=== PATIENT | female | born 1985 | race Caucasian/White ===

== ENCOUNTER 2022-08-16 08:14 | Emergency (ER) | payer BC, SELFPAY ==
--- NOTE | 2022-08-16 08:14 | ED.FEMALEGU ---
HPI - Female Genitourinary General Chief complaint: Urogenital-Female Stated complaint: UTI Time Seen by Provider: 08/16/22 08:14 Source: patient Mode of arrival: ambulatory Limitations: no limitations History of Present Illness HPI Narrative: Ms. Fay is a 37-year-old female patient presenting to the clinic today with complaints possible urinary tract infection. She reports she had blood in her urine last night with frequency and urgency and dysuria. She also reports some low back pain and some lower abdominal pain. She denies any fever or chills. She denies any nausea or vomiting. Related Data Home Medications Medication Instructions Recorded Confirmed fluoxetine 10 mg capsule 10 mg PO DAILY 07/23/22 08/16/22 fluoxetine 20 mg capsule 20 mg PO DAILY 07/23/22 08/16/22 lithium carbonate 300 mg capsule 300 mg PO DAILY 07/23/22 08/16/22 lithium carbonate 450 mg 450 mg PO DAILY 07/23/22 08/16/22 tablet,extended release olanzapine 2.5 mg tablet 2.5 mg PO DAILY 07/23/22 08/16/22 Allergies Allergy/AdvReac Type Severity Reaction Status Date / Time No Known Allergies Allergy Verified 07/23/22 08:33 Review of Systems Review of Systems: Pertinent positives per HPI. Patient denies any fever, chills, rash, headache, visual changes, dizziness, cough, runny nose, sore throat, shortness of breath, chest pain, palpitations, nausea, vomiting, diarrhea, constipation PMFSH Past Medical History Medical History Allergies Anxiety Crohn's disease Depression Family History Family History Sibling Family history of thyroid disease Mother Family history of gastrointestinal disorder Father Family history of elevated blood lipids Social History Social History Smoking status: Never smoker Alcohol intake: current Alcohol use details: social Substance use: never Comments At the time of my signature, I reviewed and agree with the nursing past medical, surgical, social, and family history. There is no relevant family history pertinent to the patient complaint. Exam Narrative: General: Well-developed, well nourished, in no apparent distress. Head: Normocephalic, atraumatic. Cardio: Regular rate and rhythm, s1 and s2 normal, no murmur appreciated. Resp: Clear to auscultation bilaterally, no rhonchi, rales, wheezing or rubs. Abdomen: Soft, pliable, bowel sounds present in all quadrants, tender to palpation to lower abdomen and over the bladder, no organomegly, no CVAT tenderness. Course Course Emergency Course: Portions of this record may have been created with voice recognition software. Level of Care: Express Care Visit Vital Signs Vital signs: Vital signs reviewed MDM - Female Genitourinary MDM Narrative Medical decision making narrative: At the time of visit patient is resting comfortably on the exam table. Urinalysis was performed and shows positive leukocytes, blood, protein, high specific gravity, and nitrates. I will place her on a 7 day course of Bactrim DS as well as some Pyridium. Supportive measures were discussed with the patient she voiced understanding of discharge instructions and agrees to treatment plan. Urine culture was sent to the lab Differential Diagnosis Differential diagnosis: Likely urinary tract infection and cystitis Discharge Plan Discharge Clinical Impression: Urinary tract infection Qualifiers: Urinary tract infection type: acute cystitis Hematuria presence: with hematuria Qualified Code(s): N30.01 - Acute cystitis with hematuria Patient Disposition: Home, Self-Care Condition: Stable Instructions: Antibiotic Form, Urinary Tract Infection in Women (ED) Additional Instructions: UA was positive for bacteria, nitrate, blood, and protein. we will send urine for culture Start Ad[place]isa
[2022-08-16 08:20] VITALS: BP 116/69; PULSE 87; RESP 18; TEMP 36.4; O2SAT 100
== END 2022-08-16 08:53 | disposition home or self-care (01) ==
PROVIDERS: Emergency Provider Nurse Practitioner Family; PCP Internal Medicine
DX: N30.01 Acute cystitis with hematuria (principal); F41.9 Anxiety disorder, unspecified; F32.A Depression, unspecified; K50.90 Crohn's disease, unspecified, without complications
CPT/HCPCS: 81003; 87077; 87086; 87186; 99213; G0463

== ENCOUNTER 2023-04-09 08:42 | Inpatient (IN) | payer BC, SELFPAY ==
[2023-04-09] VITALS (29 sets, daily range): BP systolic 95–125; BP diastolic 55–77; PULSE 63–90; RESP 16–18; TEMP 36.6–37.1; O2SAT 97–100; BMI 23.4
--- NOTE | ~2023-04-09 | CT_ITS ---
EXAMINATION: CT abdomen pelvis w con DATE: 04/09/2023 10:41 INDICATION: Low abdominal pain. TECHNIQUE: Computed tomography (CT) of the abdomen and pelvis was performed with 100 mL Omnipaque 350 intravenous contrast. Automated exposure control and iterative reconstruction technique were employe d. The dose-length product was 243.62 mGy-cm. COMPARISON: CT abdomen and pelvis 08/11/2018 FINDINGS: The visualized portions of the lung bases demonstrate mild atelectasis. No pleural effusion . The heart size is normal. No pericardial effusion. The liver, gallbladder, spleen, pancreas, adrena l glands, and kidneys are normal. There are no dilated loops of bowel. There is wall thickening of th e distal 15 cm of small bowel with adjacent fat stranding. There is a 9 mm rim-enhancing abscess tennille cent to the terminal ileum with surrounding fat stranding. There are no pathologically enlarged lymph nodes. There is physiologic fluid in the pelvis. There is mild thoracolumbar spondylosis. IMPRESSION: 1. Terminal ileitis with small adjacent abscess, consistent with Crohn disease. Reviewed, dictated and finalized at location A.
--- NOTE | 2023-04-09 08:57 | ED.ABDPAIN ---
HPI - Abdominal Pain General Chief Complaint: Abdominal Pain Stated Complaint: abd cramps Time Seen by Provider: 04/09/23 08:56 Source: patient and family Mode of arrival: ambulatory Limitations: no limitations History of Present Illness HPI narrative: 57 years old white female presents with intermittent abdominal cramps for weeks, got worse yesterday, has been steady since. Associated with nausea and chills. She denies any vomiting, diarrhea, constipation, fever, vaginal bleeding or discharge or urinary symptoms. History of Crohn's. And anemia. Patient does not smoke or drink or uses drugs no history of abdominal surgery. Related Data Home Medications Medication Instructions Recorded Confirmed fluoxetine 10 mg capsule 10 mg PO DAILY 07/23/22 08/16/22 fluoxetine 20 mg capsule 20 mg PO DAILY 07/23/22 08/16/22 lithium carbonate 300 mg capsule 300 mg PO DAILY 07/23/22 08/16/22 lithium carbonate 450 mg 450 mg PO DAILY 07/23/22 08/16/22 tablet,extended release olanzapine 2.5 mg tablet 2.5 mg PO DAILY 07/23/22 08/16/22 budesonide 3 mg 3 mg PO DAILY 04/09/23 04/09/23 capsule,delayed,extended release ferrous sulfate 325 mg (65 mg 325 mg PO DAILY 04/09/23 04/09/23 iron) tablet Allergies Allergy/AdvReac Type Severity Reaction Status Date / Time No Known Allergies Allergy Verified 04/09/23 09:22 Review of Systems Review of Systems: All systems reviewed & are unremarkable except as noted in HPI and below PMFSH Past Medical History Medical History Allergies Anxiety Crohn's disease Depression Family History Family History Sibling Family history of thyroid disease Mother Family history of gastrointestinal disorder Father Family history of elevated blood lipids Social History Social History Smoking status: Never smoker Alcohol intake: current Alcohol use details: social Substance use: never Exam Narrative: General appearance: Well-developed, well-nourished Skin: Normal color Head: Normocephalic, nontraumatic Eyes: Clear conjunctiva ENT: Oropharynx normal, ears normal, nose normal Neck: Supple, nontender Chest and respiratory: Airway patent, no respiratory distress, no accessory muscle use Heart: Regular rate/rhythm Abdomen: Soft, nontender, no organomegaly, quiet bowel sounds Vascular: Normal peripheral pulses, normal capillary refill. Musculoskeletal: Normal range of motion, nontender back Neurologic: Alert and oriented ?3, HOME HEALTH AIDE is normal as tested, no gross motor deficit Distended, diffuse tenderness lower abdomen bilaterally, slight guarding, no rebound, quiet bowel sounds Course Consultations Consultation #1: Dr. Keane Date: 04/09/23 Time: 12:09 Consultation #2: Dr. Ballard Date: 04/09/23 Time: 12:11 Vital Signs Vital signs: Vital Signs Pulse Oximetry 100 04/09/23 08:55 Temperature 36.7 C 04/09/23 11:00 Pulse Rate 73 04/09/23 11:00 Respiratory Rate 18 04/09/23 11:00 Blood Pressure 106/73 04/09/23 11:00 Pulse Oximetry 100 04/09/23 11:00 Oxygen Delivery Room Air 04/09/23 09:18 MDM - Abdominal Pain MDM Narrative Medical decision making narrative: 37 years old white female came to the emergency room with intermittent cramps for weeks, got worse over last 24 hours, abdominal exam was insignificant with diffuse tenderness and guarding of the lower abdomen bilaterally mainly on the right side. Differential diagnosis as below, History of Crohn's disease currently on Entocort. Workup today include CBC, CMP,
[2023-04-09 09:34] LABS: Basophils Absolute Auto 0.1 K/mm3 (0.0-0.1); Basophils Percent Auto 0.9 % (0.2-1.2); Eosinophils Absolute Auto 0.3 K/mm3 (0-0.3); Eosinophils Percent Auto 3.5 % (0-4.4); Hematocrit 33.9 % (37.0-47.0); Hemoglobin 10.8 g/dL (12.0-15.0); Immature Granulocyte Absolute 0.02 K/mm3 (0.00-0.031); Immature Granulocyte Percent A 0.3 % (0-0.5); Lymphocytes Absolute Auto 1.75 K/mm3 (0.9-3.2); Lymphocytes Percent Auto 22.8 % (18.3-44.2); Mean Corpuscular HGB Conc 31.9 g/dl (32-36); Mean Corpuscular Hemoglobin 26.5 pg (26-34); Mean Corpuscular Volume 83.3 fl (80-100); Mean Platelet Volume 8.9 fl (7.4-10.4); Monocytes Absolute Auto 0.6 K/mm3 (0.1-0.6); Monocytes Percent Auto 7.7 % (2.6-8.5); Neutrophils Percent Auto 64.8 % (45.5-73.1); Platelet Count Result 338 k/mm3 (150-375); Red Blood Count 4.07 M/mm3 (4.2-5.4); Red Cell Distribution Width 13.2 % (11.5-14.5); White Blood Count 7.7 K/mm3 (4.5-10.0)
[2023-04-09 09:44] LABS: Alanine Aminotransferase 15 U/L (6-35); Alkaline Phosphatase 48 U/L (38-126); Anion Gap 6 mmol/L (8-16); Aspartate Amino Transferase 21 U/L (14-36); Bilirubin,Total 0.4 mg/dL (0.2-1.3); Blood Urea Nitrogen 16 mg/dL (7-17); Calcium 8.7 mg/dL (8.4-10.2); Carbon Dioxide 27 mmol/L (22-30); Chloride 102 mmol/L (98-107); Estimated CRCL calculation 92 ml/min; Estimated Glomerular Filt Rate > 60; Glucose 103 mg/dL (65-110); Lipase 82 U/L (23-300); Potassium 3.9 mmol/L (3.4-5.0); Sodium 135 mmol/L (137-145)
[2023-04-09 10:23] LABS: Appearance Urine Clear (Clear); Bacteria Urine 1+ /hpf; Bilirubin Urine Negative (Negative); Blood Urine Negative (Negative); Color Urine Yellow (Yellow); Glucose Urine UA Negative (Negative); Ketones Urine Trace mg/dL (Negative); Leukocyte Esterase Ur Negative LEU/UL (Negative); Nitrate Urine Negative (Negative); Non Pathogenic Casts 0-2; Protein Urine Trace mg/dL (Negative); Squamous Epithelial Cell Urine Moderate /hpf (Few); WBC Urine 0-5 /hpf; pH Urine 5.5 (5.0-9.0)
[2023-04-09 10:41] LABS: Specific Grav Ur 1.037 (1.001-1.035)
[2023-04-09 10:42] LABS: Add Urine Microscopic? YES
[2023-04-09] MEDS: MORPHINE SULFATE (*CRX) 4 MG/ML INJ IV PUSH (10:54)
[2023-04-09] MEDS: SODIUM CHLORIDE 0.9% IV 1,000 ML 999 ML IV CONT ×2 (10:55→12:15)
[2023-04-09] MEDS: PIPERACILLN/TAZ 3.375GM/NS50ML 3.375 GM/50 ML BAG IVPB ×3 (12:15→23:22)
--- NOTE | 2023-04-09 13:39 | PM.CNGS ---
Assessment and Plan Assessment and plan (1) Crohn's disease involving terminal ileum: Code(s): K50.00 - Crohn's disease of small intestine without complications Status: Acute Assessment and Plan: exam largely benign, await GI consultation likely IV steroids for Crohn's flare, no acute surgical indications this time, will continue to follow with serial exams (2) Abscess: Code(s): L02.91 - Cutaneous abscess, unspecified Status: Acute Assessment and Plan: small adjacent abscess near the terminal ileum, unlikely will need drainage at this time, IV antibiotics History of Present Illness Consult details Consult date: 04/09/23 Reason for consult: abdominal pain Requesting physician: Marco Decker MD Narrative: The patient is a 37-year-old female with history Crohn's disease presenting to the emergency department complaining severe crampy abdominal pain. Patient reports that the pain has been going on for about the last week, however has worsened over the last 24 hours. The patient reports associated nausea, poor appetite, chills. The patient denies any fevers or changes in bowel habits. The patient follows Dr. Maciel for her Crohn's disease. Review of Systems Review of Systems: All systems reviewed & are unremarkable except as noted in HPI and below PMFSH Past Medical History Medical History Allergies Anxiety Crohn's disease Depression Family History Family History Sibling Family history of thyroid disease Mother Family history of gastrointestinal disorder Father Family history of elevated blood lipids Social History Social History Smoking status: Never smoker Alcohol intake: current Alcohol use details: social Substance use: never Meds Home Medications and Allergies Home Medications Medication Instructions Recorded Confirmed Type fluoxetine 10 mg capsule 10 mg PO DAILY 07/23/22 08/16/22 History fluoxetine 20 mg capsule 20 mg PO DAILY 07/23/22 08/16/22 History lithium carbonate 300 mg capsule 300 mg PO DAILY 07/23/22 08/16/22 History lithium carbonate 450 mg 450 mg PO DAILY 07/23/22 08/16/22 History tablet,extended release olanzapine 2.5 mg tablet 2.5 mg PO DAILY 07/23/22 08/16/22 History phenazopyridine 200 mg tablet 200 mg PO TID PRN pain 6 doses #6 08/16/22 Rx (Pyridium) tabs budesonide 3 mg See Rx Instructions .Route 01/03/23 Rx capsule,delayed,extended release .COMPLEX #90 caps budesonide 3 mg 3 mg PO DAILY 04/09/23 04/09/23 History capsule,delayed,extended release ferrous sulfate 325 mg (65 mg 325 mg PO DAILY 04/09/23 04/09/23 History iron) tablet Allergies Allergy/AdvReac Type Severity Reaction Status Date / Time No Known Allergies Allergy Verified 04/09/23 09:22 Vital Signs Vital Signs - 24 hr 04/09/23 09:18 04/09/23 08:55 04/09/23 09:00 Temperature 36.7 C Pulse Rate 85 Respiratory Rate 16 Blood Pressure 107/77 Pulse Oximetry 100 100 100 Oxygen Delivery Room Air 04/09/23 09:15 04/09/23 11:00 04/09/23 11:01 Temperature 36.7 C Pulse Rate 73 Respiratory Rate 18 Blood Pressure 106/73 Pulse Oximetry 100 100 100 Oxygen Delivery 04/09/23 11:20 04/09/23 11:30 04/09/23 11:31 Temperature Pulse Rate Respiratory Rate Blood Pressure 125/71 Pulse Oximetry 100 100 100 Oxygen Delivery 04/09/23 11:54 04/09/23 11:55 04/09/23 12:00 Temperature Pulse Rate 65 Respiratory Rate Blood Pressure 95/69 L 96/69 L Pulse Oximetry 100 100 100 Oxygen Delivery 04/09/23 12:01 04/09/23 12:15 04/09/23 12:17 Temperature Pulse Rate Respiratory Rate Blood Pressure 109/64 Pulse Oximetry 100 100 100 Oxygen Delivery 04/09/23 12:30 04/09/23 12:31 04/09/23 12:48 Temperature Pulse Rate 63 Respira
--- NOTE | 2023-04-09 15:42 | ADMGEN ---
This patient, Lizabeth Fay, was admitted to 2 Medical Room 254-01. Patient/family oriented to hospital policies and general routines including ID bracelet, bed and alarms, visiting hours, pain management, procedures, bathroom and other care routines, personal items, smoking policy, room service/diet, and visiting hours. Information on how to activate the Rapid Response Team has been discussed. Patient/Family are encouraged to report perceived risks to care and to ask questions if they do not understand what they are told or what they should do.
--- NOTE | 2023-04-09 15:55 | PM.IMHP ---
H&P: HPI History of Present Illness Date/Time: 04/09/23 14:45 Chief Complaint: Abdominal pain. Narrative: This is a very pleasant 37-year-old female with Crohn's disease who presented to the emergency department for evaluation of abdominal pain. The patient provides the following history. She is a patient of Dr. Maciel and has been maintained on Entocort for many years seems to have done well with that. The last month or so however she has had intermittent issues of abdominal cramping and discomfort similar to prior Crohn's flares. It has become more persistent the last few days and seems to be diffuse throughout the abdomen however is more noticeable on the right side with examination. Her pain seems to be worse with eating but not always. Her stools have been small in caliber and hard; she has not noticed any blood or mucus in the stools. Associated symptoms include chills, sweats, and nausea though she has not had any vomiting. In the ED: She was afebrile on arrival with stable vital signs. CT of the abdomen and pelvis showed terminal ileitis with a small adjacent abscess. She was started on Zosyn and is being admitted in this setting for further treatment and consultations with surgery and GI. Review of Systems Review of Systems: Twelve systems were reviewed and are negative except for as per HPI. [facility] Past Medical History Medical History (Updated 04/09/23 @ 22:17 by Emma Mueller PA-C) Allergies Anxiety Chronic anemia Crohn's disease Depression Surgical History Surgical History (Updated 04/09/23 @ 22:15 by Emma Mueller PA-C) History of wisdom tooth extraction Family History Family History Sibling Family history of thyroid disease Mother Family history of gastrointestinal disorder Father Family history of elevated blood lipids Social History Social History (Updated 04/09/23 @ 22:15 by Emma Mueller PA-C) Social History: Surrogate medical decision maker: Jennifer or Emmett Sumeet, parents. Code status: Full code. Smoking status: Never smoker Alcohol intake: former Alcohol use details: social Substance use: never Lack of Transportation: No Lack of Food: Never True Current Housing: I Have Housing Concerned About Future Housing: No Difficulty Paying Gas/Electric Bills: No Difficulty Paying for Meds: No Currently Unemployed: No Education: Bachelor's Degree Difficulty w/ Childcare or Family Care: No Spiritual care concerns: No Meds Home Medications and Allergies Home Medications Medication Instructions Recorded Confirmed Type budesonide 3 mg See Rx Instructions .Route 01/03/23 04/09/23 Rx capsule,delayed,extended release .COMPLEX #90 caps budesonide 3 mg 3 mg PO DAILY 04/09/23 04/09/23 History capsule,delayed,extended release ferrous sulfate 325 mg (65 mg 325 mg PO DAILY 04/09/23 04/09/23 History iron) tablet Allergies Allergy/AdvReac Type Severity Reaction Status Date / Time No Known Allergies Allergy Verified 04/09/23 09:22 Vital Signs Vital Signs - 24 hr 04/09/23 09:18 04/09/23 08:55 04/09/23 09:00 Temperature 98.1 F Pulse Rate 85 Respiratory Rate 16 Blood Pressure 107/77 Pulse Oximetry 100 100 100 Oxygen Delivery Room Air 04/09/23 09:15 04/09/23 11:00 04/09/23 11:01 Temperature 98.0 F Pulse Rate 73 Respiratory Rate 18 Blood Pressure 106/73 Pulse Oximetry 100 100 100 Oxygen Delivery 04/09/23 11:20 04/09/23 11:30 04/09/23 11:31 Temperature Pulse Rate Respiratory Rate Blood Pressure 125/71 Pulse Oximetry 100 100 100 Oxygen Delivery 04/09/23 11:54 04/09/23 11:55 04/09/23 12:00 Temperature Pulse Rate 65 Respiratory Rate Blood Pressure 95/69 L 96/69 L Pulse Oximetry 100 100 100 Oxygen Delivery 04/09/23 12:01 04/09/23 12:15 04/09/23 12:17 Temperature Pulse Rate Respiratory Rate
[2023-04-09] MEDS: SODIUM CHLORIDE 0.9% IV 1,000 ML 150 ML IV CONT (17:50)
[2023-04-09] MEDS: ONDANSETRON INJ 4 MG/2 ML VIAL IV PUSH (23:22)
[2023-04-09] MEDS: HYDROmorphone HCL INJ (*CRX) 1 MG/ML SYR 0.5 MG IV PUSH (23:22)
[2023-04-10] MEDS: SODIUM CHLORIDE 0.9% IV 1,000 ML 150 ML IV CONT ×4 (00:32→21:43)
[2023-04-10 05:28] LABS: Hematocrit 27.8 % (37.0-47.0); Hemoglobin 8.7 g/dL (12.0-15.0); Mean Corpuscular HGB Conc 31.3 g/dl (32-36); Mean Corpuscular Hemoglobin 26.8 pg (26-34); Mean Corpuscular Volume 85.5 fl (80-100); Platelet Count Result 241 k/mm3 (150-375); Red Blood Count 3.25 M/mm3 (4.2-5.4); Red Cell Distribution Width 13.3 % (11.5-14.5); White Blood Count 8.4 K/mm3 (4.5-10.0)
[2023-04-10 05:34] VITALS: BP 95/52; PULSE 72; RESP 17; TEMP 36.6; O2SAT 99
[2023-04-10 05:43] LABS: Anion Gap 3 mmol/L (8-16); Blood Urea Nitrogen 8 mg/dL (7-17); Calcium 7.7 mg/dL (8.4-10.2); Carbon Dioxide 24 mmol/L (22-30); Chloride 108 mmol/L (98-107); Estimated CRCL calculation 79 ml/min; Estimated Glomerular Filt Rate > 60; Glucose 84 mg/dL (65-110); Magnesium 1.8 mg/dL (1.6-2.3); Sodium 135 mmol/L (137-145)
[2023-04-10] MEDS: PIPERACILLN/TAZ 3.375GM/NS50ML 3.375 GM/50 ML BAG IVPB ×4 (05:49→23:33)
--- NOTE | 2023-04-10 07:44 | PM.IMPN ---
Progress Note: A&P Assessment and Plan (1) Crohn's disease involving terminal ileum: Code(s): K50.00 - Crohn's disease of small intestine without complications Status: Acute Assessment and Plan: Follows with Dr Maciel Therapy with Budesonide Presenting now with abdominal pain and nausea IVF, liquid diet PRN pain and anti-emetics GI consult. Appreciate recommendations. DVT prophylaxis with Lovenox and SCDs (2) Abscess of abdominal cavity: Code(s): K65.1 - Peritoneal abscess Status: Acute Assessment and Plan: Small adjacent abscess near terminal ileum Antibiotics with zosyn Consult with general surgery-no surgical intervention indicated at this time WBC 8.4, afebrile (3) Mild dehydration: Code(s): E86.0 - Dehydration Status: Acute Assessment and Plan: On maintenance fluids NS 150 ml per hour SBP 95/52 overnight Will give 1 L NS bolus (4) Chronic anemia: Code(s): D64.9 - Anemia, unspecified Status: Acute Assessment and Plan: Chronic anemia on ferrous sulfate at home, restarted here Stable Hgb 8.7/27.8 Daily labs Plan -GI consult for further recommendations. -IVF, pain control, nausea control -IV antibiotics Subjective Date/time seen: 04/10/23 07:44 Interval history: HPI obtained from chart: This is a very pleasant 37-year-old female with Crohn's disease who presented to the emergency department for evaluation of abdominal pain. The patient provides the following history. She is a patient of Dr. Maciel and has been maintained on Entocort for many years seems to have done well with that. The last month or so however she has had intermittent issues of abdominal cramping and discomfort similar to prior Crohn's flares. It has become more persistent the last few days and seems to be diffuse throughout the abdomen however is more noticeable on the right side with examination. Her pain seems to be worse with eating but not always. Her stools have been small in caliber and hard; she has not noticed any blood or mucus in the stools. Associated symptoms include chills, sweats, and nausea though she has not had any vomiting. In the ED: She was afebrile on arrival with stable vital signs. CT of the abdomen and pelvis showed terminal ileitis with a small adjacent abscess. She was started on Zosyn and is being admitted in this setting for further treatment and consultations with surgery and GI. Interval History 04/10: Patient is seen resting in bed, she appears pale and unwell. She says that this morning she had some pain and nausea blood both were controlled with p.r.n. agents. Her mom daughter at bedside. Her family has a long history of Crohn's disease with her mom being in remission for 20 years, her brother has Crohn's, an aunt, and a nephew. This is the patient's 2nd hospitalization for Crohn's. She had previously had a abscess was concerns for fistula development for which she had surgery performed. She says that last night when she had received some pain medicine and antibiotics she had an episode of diarrhea but then later felt like she was constipated. She also complains of abdominal cramping overnight. She has been tolerating the full liquid diet. Await GI recommendations if steroids are needed. Can add Bentyl for abdominal cramping. Exam Narrative: General: well-nourished, well-appearing 78-year-old female, sitting up in bed, comfortable, NARD Neuro: awake, alert and oriented x4, speech clear, no focal neuro deficits noted HEENMT: normocephalic, atraumatic, EOMI, sclerae anicteric, moist oral mucosa Respiratory: Clear to auscultation bilaterally without crackles, rhonchi or wheezes, nonlabored breathing Cardio: regular rate, regular rhythm with S1-S2 Abdomen: nondistended, normoactive bowel sounds, soft, nontender to palpation Extremities: no edema, erythema, or tenderness to palpation, DP pulses 2+ bilaterally Sk
[2023-04-10] MEDS: SODIUM CHLORIDE 0.9% IV 1,000 ML 999 ML IV CONT (08:47)
[2023-04-10] MEDS: ENOXAPARIN 40 MG/0.4 ML SYRINGE SUB-Q (08:48)
[2023-04-10] MEDS: HYDROmorphone HCL INJ (*CRX) 1 MG/ML SYR 0.5 MG IV PUSH (08:48)
[2023-04-10] MEDS: FERROUS SULFATE 325 MG TABLET DR BY MOUTH (08:48)
[2023-04-10] MEDS: ACETAMINOPHEN 325 MG TABLET 650 MG PO (12:15)
--- NOTE | 2023-04-10 12:39 | PM.PNGS ---
Progress Note: A&P Assessment and Plan (1) Crohn's disease involving terminal ileum: Code(s): K50.00 - Crohn's disease of small intestine without complications Status: Acute Assessment and Plan: await GI consultation re: need for steroids acutely, exam now benign, cont IV abx (2) Abscess: Code(s): L02.91 - Cutaneous abscess, unspecified Status: Acute Assessment and Plan: cont abx, exam benign Subjective Subjective Date/Time Seen: 04/10/23 12:39 Interval history: feels better today, decreased pain, no further N/V, fareed full liquids, +bowel fxn Review of Systems Review of Systems: All systems reviewed & are unremarkable except as noted in HPI and below Exam Const: General: cooperative, comfortable and no acute distress Resp: Auscultation: clear to auscultation bilaterally Cardio: Rate: regular rate Rhythm: regular rhythm GI: Inspection: normal to inspection and non-distended GI Palp: Yes abdominal tenderness, Yes Soft to palpation, Yes Tenderness to palpation present (GI), No Guarding due to palpation present (GI) and No Rigid due to palpation Objective Data Vital Signs Vital Signs: Vital Signs - 24 hr 04/09/23 12:48 04/09/23 13:04 04/09/23 13:17 Temperature Pulse Rate Respiratory Rate Blood Pressure Pulse Oximetry 97 100 100 Oxygen Delivery 04/09/23 13:30 04/09/23 13:45 04/09/23 14:00 Temperature Pulse Rate Respiratory Rate Blood Pressure Pulse Oximetry 100 100 100 Oxygen Delivery 04/09/23 14:27 04/09/23 14:30 04/09/23 14:45 Temperature Pulse Rate 90 Respiratory Rate 16 Blood Pressure Pulse Oximetry 100 100 100 Oxygen Delivery 04/09/23 16:05 04/09/23 16:25 04/09/23 20:00 Temperature 37.1 C Pulse Rate 80 80 Respiratory Rate 16 16 Blood Pressure 106/56 L Pulse Oximetry 100 100 Oxygen Delivery Room Air Room Air 04/09/23 21:31 04/10/23 05:34 04/10/23 08:00 Temperature 36.6 C 36.6 C Pulse Rate 88 72 Respiratory Rate 17 17 Blood Pressure 96/55 L 95/52 L Pulse Oximetry 99 99 Oxygen Delivery Room Air Intake/Output Intake/Output: Intake & Output 08/03/2304/08/23 04/09/23 04/10/23 23:59 23:59 23:59 23:59 Intake Total 2150 2560 Balance 2150 2560 Meds/Results Medications: Active Medications Generic Name Dose Route Start Last Admin Trade Name Freq PRN Reason Stop Dose Admin Acetaminophen 650 mg 04/10/23 10:40 04/10/23 12:15 Acetaminophen 325 Mg Tablet PO 650 mg Q4H PRN Administration Pain Rated 1-3 Dicyclomine HCl 20 mg 04/10/23 11:00 Dicyclomine Hcl 10 Mg Capsule PO QID PRN Abdominal Cramping Enoxaparin Sodium 40 mg 04/10/23 09:00 04/10/23 08:48 Enoxaparin 40 Mg/0.4 Ml Syringe SUB-Q 40 mg DAILY MELO Administration Ferrous Sulfate 325 mg 04/10/23 09:00 04/10/23 08:48 Ferrous Sulfate [address] BY MOUTH 325 mg DAILY MELO Administration Hydromorphone HCl 0.5 mg 04/09/23 12:38 04/10/23 08:48 Hydromorphone Hcl Inj (*Crx) 1 Mg/Ml Syr IV PUSH 0.5 mg Q4H PRN Administration Pain Rated 7-10 Hydromorphone HCl 0.25 mg 04/10/23 10:40 Hydromorphone Hcl Inj (*Crx) 1 Mg/Ml Syr IV PUSH Q3H PRN Pain Rated 4-6 Piperacillin/Tazobactam/Dextrose 3.375 gm in 50 mls @ 100 mls/hr 04/09/23 12:00 04/10/23 12:16 Zosyn 3.375 Gm/Ns 50 Ml IVPB 100 mls/hr Q6H MELO Administration Sodium Chloride 1,000 mls @ 150 mls/hr 04/09/23 12:40 04/10/23 05:49 Normal Saline Iv IV CONT 150 mls/hr .Q6H40M MELO Administration Ondansetron HCl 4 mg 04/09/23 12:38 04/09/23 23:22 Ondansetron Inj 4 Mg/2 Ml Vial IV PUSH 4 mg Q4H PRN Administration Nausea Radiology Results: ITS Impressions Abdomen/Pelvis CT 04/09/23 10:41 IMPRESSION: 1. Terminal ileitis with small adjacent abscess, consistent with Crohn disease. Labs Labs: Laboratory Results - last 24 hr
[2023-04-10 14:55] VITALS: BP 98/54; PULSE 62; RESP 18; TEMP 36.5; O2SAT 100
--- NOTE | 2023-04-10 15:22 | WPDGICN ---
Assessment and Plan Assessment and plan (1) Crohn's disease involving terminal ileum: Code(s): K50.00 - Crohn's disease of small intestine without complications Status: Acute Assessment and Plan: CT scan reviewed surgery on board on antibiotics, also will use iv steroids (hold entecort for now) she will need biologics near future (had reaction to humira- probably could use entyvio, stelara, skyrizi, etc) will get inflammatory markers and also get HBV and TB status she also will need colonoscopy soon (next appointment with Dr Maciel next month and they can discuss next course of treatment) (2) Abscess of abdominal cavity: Code(s): K65.1 - Peritoneal abscess Status: Acute Assessment and Plan: on abx (3) Chronic anemia: Code(s): D64.9 - Anemia, unspecified Status: Acute Assessment and Plan: monitor (4) Lower abdominal pain: Code(s): R10.30 - Lower abdominal pain, unspecified Status: Acute Assessment and Plan: better GI Consult Note Consult date/time: 04/10/23 15:22 Reason for consult: crohn's HPI: Lizabeth Fay is a 37 year old female who is Dr Maciel's patient. She has Crohn disease at the age of 25.? Her last colonoscopy in 2015 revealed inflammatory changes along the ileocecal valve and what could also could be seen in the terminal ileum.? An MR enterography 2018 showed active ileitis in the terminal ileum over 10 cm area but no significant stricture and dilatation.? She had been tried on a biologic about 7 years ago, Humira that worked quite well, but developed lupus like reaction to that.? She had been on Entocort 3 can tablets per day in 2019 and 2019, then restarted recently but she says for last 2 months with more intermittent lower abdominal pain, finally yesterday pain more severe and did not go away, also had diarrhea (normally she tends to have constipation). The patient reports associated nausea, poor appetite, chills. CT scan showed terminal ileitis with small adjacent abscess, consistent with Crohn disease. Today she is feeling better. Review of Systems Constitutional: Constitutional: Denies weakness Eyes: Eyes: Denies blurry vision ENT: Reports Normal hearing present Cardiovascular: Cardiovascular: Denies chest pain Respiratory: Respiratory: Denies cough Gastrointestinal: Gastrointestinal: Reports abdominal pain, Reports diarrhea and Reports nausea Genitourinary: Genitourinary: Denies hematuria Musculoskeletal: Musculoskeletal: Denies neck pain Integumentary/Breasts: Skin/Breast: Denies rash Neurologic: Denies confusion Psychiatric: Psychiatric: Denies behavioral changes [facility] Past Medical History Medical History (Updated 04/10/23 @ 15:30 by Stalin Johnson MD) Allergies Anxiety Chronic anemia Crohn's disease Depression Lower abdominal pain Surgical History Surgical History (Updated 04/09/23 @ 22:15 by Emma Mueller PA-C) History of wisdom tooth extraction Family History Family History Sibling Family history of thyroid disease Mother Family history of gastrointestinal disorder Father Family history of elevated blood lipids Social History Social History (Updated 04/09/23 @ 22:15 by Emma Mueller PA-C) Social History: Surrogate medical decision maker: Jennifer or Emmett Sumeet, parents. Code status: Full code. Smoking status: Never smoker Alcohol intake: former Alcohol use details: social Substance use: never Lack of Transportation: No Lack of Food: Never True Current Housing: I Have Housing Concerned About Future Housing: No Difficulty Paying Gas/Electric Bills: No Difficulty Paying for Meds: No Currently Unemployed: No Education: Bachelor's Degree Difficulty w/ Childcare or Family Care: No Spiritual care concerns: No Meds Home Medications and Allergies Home Medications Medic
[2023-04-10] MEDS: ONDANSETRON INJ 4 MG/2 ML VIAL IV PUSH (17:18)
[2023-04-10 18:56] VITALS: BP 99/64; PULSE 78; RESP 18; TEMP 36.9; O2SAT 99
[2023-04-10 20:00] VITALS: BP 95/62; PULSE 74; RESP 18; TEMP 36.2; O2SAT 100
[2023-04-10] MEDS: methylPREDNISolone SOD SUCC 40 MG VIAL IV PUSH (21:43)
[2023-04-11] VITALS: BP 96/57; PULSE 64; RESP 18; TEMP 36.3; O2SAT 97
[2023-04-11 04:00] VITALS: BP 92/53; PULSE 64; RESP 18; TEMP 36; O2SAT 97
[2023-04-11] MEDS: SODIUM CHLORIDE 0.9% IV 1,000 ML 150 ML IV CONT ×2 (04:51→11:54)
[2023-04-11 05:34] LABS: Alanine Aminotransferase 17 U/L (6-35); Albumin Level 3.1 g/dL (3.5-5.1); Alkaline Phosphatase 47 U/L (38-126); Anion Gap 1 mmol/L (8-16); Aspartate Amino Transferase 23 U/L (14-36); Bilirubin,Total 0.2 mg/dL (0.2-1.3); Blood Urea Nitrogen 5 mg/dL (7-17); CRP 1.7 mg/dL (<1.0); Calcium 8.2 mg/dL (8.4-10.2); Carbon Dioxide 25 mmol/L (22-30); Chloride 109 mmol/L (98-107); Estimated CRCL calculation 79 ml/min; Estimated Glomerular Filt Rate > 60; Glucose 122 mg/dL (65-110); Magnesium 1.8 mg/dL (1.6-2.3); Sodium 135 mmol/L (137-145)
[2023-04-11] MEDS: PIPERACILLN/TAZ 3.375GM/NS50ML 3.375 GM/50 ML BAG IVPB ×2 (05:37→11:55)
[2023-04-11] MEDS: methylPREDNISolone SOD SUCC 40 MG VIAL IV PUSH ×2 (05:38→13:28)
[2023-04-11 05:50] LABS: Iron 21 ug/dL (37-170)
[2023-04-11 06:04] LABS: Percent Iron Saturation 8 % (20-50)
[2023-04-11 06:12] LABS: Basophils Percent Auto 0.4 % (0.2-1.2); Hematocrit 31.3 % (37.0-47.0); Hemoglobin 9.7 g/dL (12.0-15.0); Immature Granulocyte Absolute 0.02 K/mm3 (0.00-0.031); Immature Granulocyte Percent A 0.4 % (0-0.5); Lymphocytes Percent Auto 9.2 % (18.3-44.2); Mean Corpuscular Hemoglobin 26.7 pg (26-34); Mean Corpuscular Volume 86.2 fl (80-100); Mean Platelet Volume 9.7 fl (7.4-10.4); Monocytes Absolute Auto 0.1 K/mm3 (0.1-0.6); Monocytes Percent Auto 1.3 % (2.6-8.5); Neutrophils Absolute Auto 4.8 K/mm3 (1.3-6.7); Neutrophils Percent Auto 88.7 % (45.5-73.1); Platelet Count Result 290 k/mm3 (150-375); Red Blood Count 3.63 M/mm3 (4.2-5.4); Red Cell Distribution Width 13.3 % (11.5-14.5); White Blood Count 5.5 K/mm3 (4.5-10.0)
[2023-04-11 06:22] LABS: Hepatitis B Surface Antigen Negative (Negative)
[2023-04-11 06:34] LABS: Erythrocyte Sedimentation Rate 53 mm/hr (0-20)
[2023-04-11 06:46] LABS: Hepatitis B Surface Anti Res Positive
[2023-04-11] MEDS: ENOXAPARIN 40 MG/0.4 ML SYRINGE SUB-Q (08:01)
[2023-04-11] MEDS: FERROUS SULFATE 325 MG TABLET DR BY MOUTH (08:01)
--- NOTE | 2023-04-11 08:28 | PM.IMPN ---
Progress Note: A&P Assessment and Plan (1) Crohn's disease involving terminal ileum: Code(s): K50.00 - Crohn's disease of small intestine without complications Status: Acute Assessment and Plan: Follows with Dr Maciel Therapy with Budesonide-on hold while inpatient Presenting now with abdominal pain and nausea IVF, liquid diet PRN pain and anti-emetics GI consult. Appreciate recommendations. Starting steroids, obtain labs for starting biologics DVT prophylaxis with Lovenox and SCDs (2) Abscess of abdominal cavity: Code(s): K65.1 - Peritoneal abscess Status: Acute Assessment and Plan: Small adjacent abscess near terminal ileum Antibiotics with zosyn Consult with general surgery-no surgical intervention indicated at this time WBC 8.4, afebrile (3) Mild dehydration: Code(s): E86.0 - Dehydration Status: Acute Assessment and Plan: On maintenance fluids NS 150 ml per hour SBP 95/52, seems to be baseline for her. She is asymptomatic. (4) Chronic anemia: Code(s): D64.9 - Anemia, unspecified Status: Acute Assessment and Plan: Chronic anemia on ferrous sulfate at home, restarted here Stable Hgb 8.7/27.8 Daily labs Fe this admission is 21. Will increase her PO ferrous sulfate to BID Plan -GI consult for further recommendations. -IVF, pain control, nausea control -IV antibiotics -May advance diet today and stop IVFs Subjective Date/time seen: 04/11/23 08:28 Interval history: HPI obtained from chart: This is a very pleasant 37-year-old female with Crohn's disease who presented to the emergency department for evaluation of abdominal pain. The patient provides the following history. She is a patient of Dr. Maciel and has been maintained on Entocort for many years seems to have done well with that. The last month or so however she has had intermittent issues of abdominal cramping and discomfort similar to prior Crohn's flares. It has become more persistent the last few days and seems to be diffuse throughout the abdomen however is more noticeable on the right side with examination. Her pain seems to be worse with eating but not always. Her stools have been small in caliber and hard; she has not noticed any blood or mucus in the stools. Associated symptoms include chills, sweats, and nausea though she has not had any vomiting. In the ED: She was afebrile on arrival with stable vital signs. CT of the abdomen and pelvis showed terminal ileitis with a small adjacent abscess. She was started on Zosyn and is being admitted in this setting for further treatment and consultations with surgery and GI. Interval History 04/10: Patient is seen resting in bed, she appears pale and unwell. She says that this morning she had some pain and nausea blood both were controlled with p.r.n. agents. Her mom daughter at bedside. Her family has a long history of Crohn's disease with her mom being in remission for 20 years, her brother has Crohn's, an aunt, and a nephew. This is the patient's 2nd hospitalization for Crohn's. She had previously had a abscess was concerns for fistula development for which she had surgery performed. She says that last night when she had received some pain medicine and antibiotics she had an episode of diarrhea but then later felt like she was constipated. She also complains of abdominal cramping overnight. She has been tolerating the full liquid diet. Await GI recommendations if steroids are needed. Can add Bentyl for abdominal cramping. Review of Systems Review of Systems: Twelve systems were reviewed and are negative except for as per HPI. Exam Narrative: General: well-nourished, well-appearing 78-year-old female, sitting up in bed, comfortable, NARD Neuro: awake, alert and oriented x4, speech clear, no focal neuro deficits noted HEENMT: normocephalic, atraumatic, EOMI, sclerae anicteric, moist oral mucosa Re
[2023-04-11 10:02] VITALS: BP 107/76; PULSE 82; RESP 18; TEMP 36.3; O2SAT 99
--- NOTE | 2023-04-11 12:06 | PM.PNGS ---
Progress Note: A&P Assessment and Plan (1) Crohn's disease involving terminal ileum: Code(s): K50.00 - Crohn's disease of small intestine without complications Status: Acute Assessment and Plan: doing well, exam benign, ADAT, cont steroids, abx, no acute surgical issues Subjective Subjective Date/Time Seen: 04/11/23 12:06 Interval history: feels better, no acute issues, pain largely resolved, no N/V Review of Systems Review of Systems: All systems reviewed & are unremarkable except as noted in HPI and below Exam Const: General: cooperative, comfortable and no acute distress Resp: Auscultation: clear to auscultation bilaterally Cardio: Rate: regular rate Rhythm: regular rhythm GI: Inspection: normal to inspection and non-distended GI Palp: No abdominal tenderness, Yes Soft to palpation, No Tenderness to palpation present (GI), No Guarding due to palpation present (GI) and No Rigid due to palpation Objective Data Vital Signs Vital Signs: Vital Signs - 24 hr 04/10/23 14:55 04/10/23 18:56 04/10/23 20:00 Temperature 36.5 C 36.9 C 36.2 C L Pulse Rate 62 78 74 Respiratory Rate 18 18 18 Blood Pressure 98/54 L 99/64 L 95/62 L Pulse Oximetry 100 99 100 Oxygen Delivery 04/10/23 20:00 04/11/23 00:00 04/11/23 04:00 Temperature 36.3 C L 36.0 C L Pulse Rate 74 64 64 Respiratory Rate 18 18 18 Blood Pressure 96/57 L 92/53 L Pulse Oximetry 100 97 97 Oxygen Delivery Room Air 04/11/23 10:02 04/11/23 08:00 Temperature 36.3 C L Pulse Rate 82 Respiratory Rate 18 Blood Pressure 107/76 Pulse Oximetry 99 Oxygen Delivery Room Air Intake/Output Intake/Output: Intake & Output 04/08/23 04/09/23 04/10/23 04/11/23 23:59 23:59 23:59 23:59 Intake Total 2150 5670 2750 Balance 2150 5670 2750 Meds/Results Medications: Active Medications Generic Name Dose Route Start Last Admin Trade Name Freq PRN Reason Stop Dose Admin Acetaminophen 650 mg 04/10/23 10:40 04/10/23 12:15 Acetaminophen 325 Mg Tablet PO 650 mg Q4H PRN Administration Pain Rated 1-3 Dicyclomine HCl 20 mg 04/10/23 11:00 Dicyclomine Hcl 10 Mg Capsule PO QID PRN Abdominal Cramping Enoxaparin Sodium 40 mg 04/10/23 09:00 04/11/23 08:01 Enoxaparin 40 Mg/0.4 Ml Syringe SUB-Q 40 mg DAILY MELO Administration Ferrous Sulfate 325 mg 04/11/23 17:00 Ferrous Sulfate [address] BY MOUTH BIDWM MELO Hydromorphone HCl 0.5 mg 04/09/23 12:38 04/10/23 08:48 Hydromorphone Hcl Inj (*Crx) 1 Mg/Ml Syr IV PUSH 0.5 mg Q4H PRN Administration Pain Rated 7-10 Hydromorphone HCl 0.25 mg 04/10/23 10:40 Hydromorphone Hcl Inj (*Crx) 1 Mg/Ml Syr IV PUSH Q3H PRN Pain Rated 4-6 Piperacillin/Tazobactam/Dextrose 3.375 gm in 50 mls @ 100 mls/hr 04/09/23 12:00 04/11/23 11:55 Zosyn 3.375 Gm/Ns 50 Ml IVPB 100 mls/hr Q6H MELO Administration Sodium Chloride 1,000 mls @ 150 mls/hr 04/09/23 12:40 04/11/23 11:54 Normal Saline Iv IV CONT 150 mls/hr .Q6H40M MELO Administration Methylprednisolone Sodium Succinate 40 mg 04/10/23 22:00 04/11/23 05:38 Methylprednisolone Sod Succ 40 Mg Vial IV PUSH 40 mg Q8HR MELO Administration Ondansetron HCl 4 mg 04/09/23 12:38 04/10/23 17:18 Ondansetron Inj 4 Mg/2 Ml Vial IV PUSH 4 mg Q4H PRN Administration Nausea Radiology Results: ITS Impressions Abdomen/Pelvis CT 04/09/23 10:41 IMPRESSION: 1. Terminal ileitis with small adjacent abscess, consistent with Crohn disease. Labs Labs: Laboratory Results - last 24 hr 04/11/23 04:51 WBC 5.5 RBC 3.63 L Hgb 9.7 L Hct 31.3 L MCV 86.2 MCH 26.7 MCHC 31.0 L RDW 13.3 Plt Count 290 MPV 9.7 Immature Gran % (Auto) 0.4 Neut % (Auto) 88.7 H Lymph % (Auto) 9.2 L [place] % (Auto) 1.3 L Eos % (Auto) 0.0 Baso % (Auto) 0.4 Lymph # (Auto) 0.50 L [place] # (Auto) 0.1 Eos # (Auto) 0.0 Baso # (Auto) 0.0
--- NOTE | 2023-04-11 13:16 | WPDGIPROGNO ---
Progress Note: A&P Assessment and Plan (1) Crohn's disease involving terminal ileum: Code(s): K50.00 - Crohn's disease of small intestine without complications Status: Acute Assessment and Plan: doing much better she has been getting iv steroids she can go home with 7 days of oral antibiotics also resume budesonide as usual will need follow-up with Dr Maciel to discuss about biologics (humira caused reaction) (2) Abscess: Code(s): L02.91 - Cutaneous abscess, unspecified Status: Acute Assessment and Plan: clinically better oral abx (3) Chronic anemia: Code(s): D64.9 - Anemia, unspecified Status: Acute Assessment and Plan: also will need to set up colonoscopy with Dr Maciel as outpatient (4) Lower abdominal pain: Code(s): R10.30 - Lower abdominal pain, unspecified Status: Acute Assessment and Plan: resolved Subjective Date/time seen: 04/11/23 13:16 Interval history: no more pain and tolerating diet she is feeling like going home Review of Systems Review of Systems: All systems reviewed & are unremarkable except as noted in HPI and below Exam Const: General: cooperative, comfortable and no acute distress HENMT: Face/Nose/Sinus: Normal nares present Eyes: Sclera: sclerae normal Neck: Neck: supple Resp: Auscultation: clear to auscultation bilaterally Cardio: Rate: regular rate Rhythm: regular rhythm GI: Inspection: normal to inspection and non-distended GI Palp: Yes Soft to palpation, No Tenderness to palpation present (GI), No Guarding due to palpation present (GI) and No Rigid due to palpation Auscultation: normal bowel sounds Skin: General skin exam: normal color Neuro: Speech: normal speech Motor exam (neuro): 5/5 motor strength present throughout Extrem: General: normal to inspection Psych: Mental Status: mental status grossly normal Affect: normal affect Objective Data Vital Signs Vital Signs: Vital Signs - 24 hr 04/10/23 14:55 04/10/23 18:56 04/10/23 20:00 Temperature 97.7 F 98.4 F 97.2 F L Pulse Rate 62 78 74 Respiratory Rate 18 18 18 Blood Pressure 98/54 L 99/64 L 95/62 L Pulse Oximetry 100 99 100 Oxygen Delivery 04/10/23 20:00 04/11/23 00:00 04/11/23 04:00 Temperature 97.4 F L 96.8 F L Pulse Rate 74 64 64 Respiratory Rate 18 18 18 Blood Pressure 96/57 L 92/53 L Pulse Oximetry 100 97 97 Oxygen Delivery Room Air 04/11/23 10:02 04/11/23 08:00 Temperature 97.4 F L Pulse Rate 82 Respiratory Rate 18 Blood Pressure 107/76 Pulse Oximetry 99 Oxygen Delivery Room Air Intake/Output Intake/Output: Intake & Output 04/08/23 04/09/23 04/10/23 04/11/23 23:59 23:59 23:59 23:59 Intake Total 2150 5670 2870 Balance 2150 5670 2870 Meds/Results Medications: Active Medications Generic Name Dose Route Start Last Admin Trade Name Freq PRN Reason Stop Dose Admin Acetaminophen 650 mg 04/10/23 10:40 04/10/23 12:15 Acetaminophen 325 Mg Tablet PO 650 mg Q4H PRN Administration Pain Rated 1-3 Ciprofloxacin 500 mg 04/11/23 21:00 Ciprofloxacin 500 Mg Tab PO 04/15/23 23:59 Q12HR [facility] Dicyclomine HCl 20 mg 04/10/23 11:00 Dicyclomine Hcl 10 Mg Capsule PO QID PRN Abdominal Cramping Enoxaparin Sodium 40 mg 04/10/23 09:00 04/11/23 08:01 Enoxaparin 40 Mg/0.4 Ml Syringe SUB-Q 40 mg DAILY MELO Administration Ferrous Sulfate 325 mg 04/11/23 17:00 Ferrous Sulfate [address] BY MOUTH BIDWM [facility] Hydromorphone HCl 0.5 mg 04/09/23 12:38 04/10/23 08:48 Hydromorphone Hcl Inj (*Crx) 1 Mg/Ml Syr IV PUSH 0.5 mg Q4H PRN Administration Pain Rated 7-10 Hydromorphone HCl 0.25 mg 04/10/23 10:40 Hydromorphone Hcl Inj (*Crx) 1 Mg/Ml Syr IV PUSH Q3H PRN Pain Rated 4-6 Sodium Chloride 1,000 mls @ 150 mls/hr 04/09/23 12:40 04/11/23 11:54 Normal Saline Iv IV CONT 150 mls/hr .Q6H40M [facility] Adm
[2023-04-11 13:43] VITALS: BP 102/60; PULSE 74; RESP 18; TEMP 36.4; O2SAT 99
--- NOTE | 2023-04-11 14:05 | PM.DS ---
DS: Admitting Diagnosis Discharge Date FridayApril 11 Admitting Diagnosis Abscess DS: Discharge Diagnosis Discharge Diagnosis (1) Crohn's disease involving terminal ileum: Code(s): K50.00 - Crohn's disease of small intestine without complications Status: Acute Assessment and Plan: Follows with Dr Maciel Therapy with Budesonide-on hold while inpatient Presenting now with abdominal pain and nausea IVF, liquid diet PRN pain and anti-emetics GI consult. Appreciate recommendations. Starting steroids, obtain labs for starting biologics DVT prophylaxis with Lovenox and SCDs (2) Abscess of abdominal cavity: Code(s): K65.1 - Peritoneal abscess Status: Acute Assessment and Plan: Small adjacent abscess near terminal ileum Antibiotics with zosyn Consult with general surgery-no surgical intervention indicated at this time WBC 8.4, afebrile (3) Mild dehydration: Code(s): E86.0 - Dehydration Status: Acute Assessment and Plan: On maintenance fluids NS 150 ml per hour SBP 95/52, seems to be baseline for her. She is asymptomatic. (4) Chronic anemia: Code(s): D64.9 - Anemia, unspecified Status: Acute Assessment and Plan: Chronic anemia on ferrous sulfate at home, restarted here Stable Hgb 8.7/27.8 Daily labs Fe this admission is 21. Will increase her PO ferrous sulfate to BID Plan -GI consult for further recommendations. -IVF, pain control, nausea control -IV antibiotics -May advance diet today and stop IVFs DS: Summary Hospital Course Hospital Course: HPI obtained from chart: This is a very pleasant 37-year-old female with Crohn's disease who presented to the emergency department for evaluation of abdominal pain. The patient provides the following history. She is a patient of Dr. Maciel and has been maintained on Entocort for many years seems to have done well with that. The last month or so however she has had intermittent issues of abdominal cramping and discomfort similar to prior Crohn's flares. It has become more persistent the last few days and seems to be diffuse throughout the abdomen however is more noticeable on the right side with examination. Her pain seems to be worse with eating but not always. Her stools have been small in caliber and hard; she has not noticed any blood or mucus in the stools. Associated symptoms include chills, sweats, and nausea though she has not had any vomiting. In the ED: She was afebrile on arrival with stable vital signs. CT of the abdomen and pelvis showed terminal ileitis with a small adjacent abscess. She was started on Zosyn and is being admitted in this setting for further treatment and consultations with surgery and GI. Interval History 04/10:? Patient is seen resting in bed, she appears pale and unwell.? She says that this morning she had some pain and nausea blood both were controlled with p.r.n. agents.? Her mom daughter at bedside.? Her family has a long history of Crohn's disease with her mom being in remission for 20 years, her brother has Crohn's, an aunt, and a nephew.? This is the patient's 2nd hospitalization for Crohn's.? She had previously had a abscess was concerns for fistula development for which she had surgery performed.? She says that last night when she had received some pain medicine and antibiotics she had an episode of diarrhea but then later felt like she was constipated.? She also complains of abdominal cramping overnight.? She has been tolerating the full liquid diet.? Await GI recommendations if steroids are needed.? Can add Bentyl for abdominal cramping. 04/11: Patient is doing well today. She states she had no nausea, vomiting, or abdominal pain overnight. Tolerating her liquid diet. She says this is the best she has felt in a long time. Will give her low-fat diet for lunch and if she tolerates that she can discharge home. GI has said she can restart her budesonide o
[2023-04-16 14:38] LABS: NIL 0.01 IU/mL; Quantiferon TB Plus, 1T NEGATIVE (NEGATIVE)
[2023-04-16 19:37] LABS: Hepatitis B Core Ab Total Nonreactive (Nonreactive)
== END 2023-04-11 15:40 | disposition home or self-care (01) | DRG 385 ==
LOC: ANHED 12:11 → ANH3MEDSUR 13:34 → ANH2MED 15:29
PROVIDERS: Internal Medicine Gastroenterology; Physician Assistant; Admitting Provider Family Medicine; Emergency Provider Emergency Medicine; PCP Physician Assistant; Visit Provider Nurse Practitioner Acute Care
DX: K50.014 Crohn's disease of small intestine with abscess (principal); K65.1 Peritoneal abscess; E86.0 Dehydration; D64.9 Anemia, unspecified; F41.9 Anxiety disorder, unspecified; F32.A Depression, unspecified
CPT/HCPCS: 36415; 74177; 80048; 80053; 81001; 81025; 82728; 83540; 83550; 83690; 83735; 85025; 85027; 85652; 86140; 86480; 86704; 86706; 87340; 96361; 96374; 99285; A9270; J1170; J1650; J2270; J2405; J2543; J2920; J7030; Q9967

== ENCOUNTER 2023-06-15 12:22 | Emergency (ER) | payer BC, SELFPAY ==
[2023-06-15 12:38] VITALS: BP 115/72; PULSE 78; RESP 16; TEMP 37.2; O2SAT 100
--- NOTE | 2023-06-15 13:08 | ED.GENADULT ---
HPI - General Adult General Chief complaint: Upper Respiratory Infection Stated complaint: cough,sinus problem, tight chest Source: patient Mode of arrival: ambulatory Limitations: no limitations History of Present Illness HPI narrative: Patient presents for evaluation of cough for the last 2 days. She denies any fever, chills, nausea, vomiting, diarrhea, or shortness of breath. No recent sick contacts to her knowledge. She is not taking any medications to assist with her symptoms. She does not smoke. She indicates earlier last week she had some symptoms that she thought were related to environmental allergies. Related Data Allergies Allergy/AdvReac Type Severity Reaction Status Date / Time No Known Allergies Allergy Verified 06/15/23 12:36 Review of Systems Review of Systems: CONSTITUTIONAL: Denies fever, chills, or sweats. EYES: Denies visual changes, redness, or discharge. ENT: Denies rhinorrhea, congestion, sore throat, or otalgia. CARDIOVASCULAR: Denies chest pain, palpitations, or edema. RESPIRATORY: Reports cough. Denies shortness of breath. GASTROINTESTINAL: Denies abdominal pain, nausea, vomiting, or diarrhea. GENITOURINARY: Denies dysuria or hematuria. SKIN: Denies rash or itching. MUSCULOSKELETAL: Denies back pain, joint pain, or myalgia. NEUROLOGIC: Denies headache, numbness, dizziness, or weakness. PSYCHIATRIC: Denies anxiety or depression. [facility] Past Medical History Medical History Allergies Anxiety Chronic anemia Crohn's disease Depression Lower abdominal pain Surgical History Surgical History History of wisdom tooth extraction Family History Family History Sibling Family history of thyroid disease Mother Family history of gastrointestinal disorder Father Family history of elevated blood lipids Social History Social History Social History: Surrogate medical decision maker: Jennifer or Emmett Fay, parents. Code status: Full code. Smoking status: Never smoker Alcohol intake: former Alcohol use details: social Substance use: never Lack of Transportation: No Lack of Food: Never True Current Housing: I Have Housing Concerned About Future Housing: No Difficulty Paying Gas/Electric Bills: No Difficulty Paying for Meds: No Currently Unemployed: No Education: Bachelor's Degree Difficulty w/ Childcare or Family Care: No Spiritual care concerns: No Exam Narrative: GENERAL: Well-appearing, well-nourished, and in no acute distress. HEAD: Normocephalic, atraumatic. EYES: PERRLA and EOMI. ENT: Nares clear, no rhinorrhea or epistaxis. Mucous membranes moist. Oropharynx without tonsillar hypertrophy exudate or other lesions. Bilateral TMs pearly badillo nonbulging NECK: Supple. No adenopathy or masses. No carotid bruits or JVD CHEST: Cough present on exam. Clear to auscultation. No respiratory distress. No wheezes rales or rhonchi HEART: Regular rate and rhythm. No murmur heard. Normal peripheral pulses. ABDOMEN: Soft, nontender, nondistended, normal active bowel sounds. EXTREMITIES: Normal range of motion. No edema. SKIN: Warm, dry, no rash. NEURO: No focal deficits. Alert and oriented x3. PSYCH: Normal mood and affect. Course Course Emergency Course: This is a 38-year-old female who presented for evaluation of sick symptoms. influenza A positive. Will treat with Tamiflu. Increase hydration. [id number] agents for symptom management. Follow up with primary provider. Go to the ER for worsening symptoms. Pt in agreement with plan of care. Level of Care: Express Care Visit Vital Signs Vital signs: Vital Signs Temperature 37.2 C 06/15/23 12:38 Pulse Rate 78 06/15/23 12:38 Respiratory
== END 2023-06-15 13:03 | disposition home or self-care (01) ==
PROVIDERS: Emergency Provider Nurse Practitioner; PCP Physician Assistant
DX: J10.1 Influenza due to other identified influenza virus with other respiratory manifestations (principal); Z20.822 Contact with and (suspected) exposure to COVID-19; K50.90 Crohn's disease, unspecified, without complications; D64.9 Anemia, unspecified
CPT/HCPCS: 87081; 87426; 87804; 87880; 99213; C9803; G0463

== ENCOUNTER 2023-07-16 01:20 | Day surgery (SDC) | payer BC, SELFPAY ==
[2023-07-02 14:03] VITALS: BMI 23.4
--- NOTE | 2023-07-14 09:27 | SUR.PREOP ---
Patient called regarding upcoming procedure. Reviewed preop instructions, appointment times, and procedure prep.
--- NOTE | 2023-07-15 16:48 | PM.HPGS ---
History of Present Illness History of Present Illness Consent: Risks, benefits, and alternatives have been discussed and questions answered. Patient agrees to proceed with procedure. Chief complaint: Crohn's disease Narrative: Lizabeth Fay is a 38 year old female. Crohn's disease was diagnosed at the age of 25.? 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 She was hospitalized with a flare up in 2017 at which time she admitted that she had not been staying on medication.? She did take Entocort for while in 2018 and 2019.? When I saw her earlier this year we restarted it and she promised to be more faithful.? She however did not perform this cbc or fecal calprotectin that I requested. She had been doing well on medication until it ran out last year.? Consequently we then restarted budesonide. This summer she began having more symptoms with lower abdominal pain and was hospitalized in early April with signs and symptoms of small-bowel obstruction.? CT showed narrowing of the terminal ileum and apparent adjacent abscess.? She was started on IV steroids and IV antibiotics and improved over the next? couple of days calprotectin level was 265 last year. Now it is 4440. Review of Systems Review of Systems: All systems reviewed & are unremarkable except as noted in HPI and below PMFSH Past Medical History Medical History Allergies Anxiety Chronic anemia Crohn's disease Depression Lower abdominal pain Surgical History Surgical History History of wisdom tooth extraction Family History Family History Sibling Family history of thyroid disease Mother Family history of gastrointestinal disorder Father Family history of elevated blood lipids Social History Social History Social History: Surrogate medical decision maker: Jennifer or Emmett Fay, parents. Code status: Full code. Smoking status: Never smoker Alcohol intake: current Alcohol use details: social Substance use: never Substance use type: does not use Lack of Transportation: No Lack of Food: Never True Current Housing: I Have Housing Concerned About Future Housing: No Difficulty Paying Gas/Electric Bills: No Difficulty Paying for Meds: No Currently Unemployed: No Education: Bachelor's Degree Difficulty w/ Childcare or Family Care: No Living arrangements: with family Spiritual care concerns: No Meds Home Medications and Allergies Home Medications Medication Instructions Recorded Confirmed Type ferrous sulfate 325 mg (65 mg 325 mg BYMOUTH BIDWM #60 tabs 04/11/23 07/02/23 Rx iron) tablet,delayed release budesonide 3 mg See Rx Instructions .Route 05/14/23 07/16/23 Rx capsule,delayed,extended release .COMPLEX #90 caps Allergies Allergy/AdvReac Type Severity Reaction Status Date / Time No Known Allergies Allergy Verified 07/16/23 10:00 Exam Const: General: alert Orientation/consciousness: patient oriented x3 Resp: Auscultation: clear to auscultation bilaterally Cardio: Rhythm: regular rhythm GI: GI Palp: Yes Soft to palpation and No Tenderness to palpation present (GI) Neuro: General: patient oriented x3 Assessment and Plan Assessment and plan (1) Crohn's disease of both small and large intestine: Code(s): K50.80 - Crohn's disease of both small and large intestine without complications Status: Acute Assessment and Plan: Colonoscopy with possible biopsy or polypectomy or cautery or injection of substances.
[2023-07-16 10:02] VITALS: BP 81/51; PULSE 89; RESP 18; TEMP 36.3; O2SAT 100; BMI 23.6
[2023-07-16] MEDS: LACTATED RINGERS 1,000 ML 150 ML IV CONT (10:06)
--- NOTE | 2023-07-16 10:31 | P.PNAN_ITS ---
Anes - Initial Pre Proc Eval Procedure: Operation Date: 07/16/23 11:00 Proposed Procedures p Colonoscopy - Son Maciel MD Date/Time: 07/16/23 10:31 Surgeon: Son Maciel MD Pre Op Diagnosis: Crohn's disease Patient Data Age: 38 Gender: F Height: 1.52 m Weight: 54.9 kg Last Vital Signs Temp 97.4 F L 07/16/23 10:02 Pulse 89 07/16/23 10:02 Resp 18 07/16/23 10:02 BP 81/51 L 07/16/23 10:02 Pulse Ox 100 07/16/23 10:02 O2 Del Method Room Air 07/16/23 10:02 Allergies Allergy/AdvReac Type Severity Reaction Status Date / Time No Known Allergies Allergy Verified 07/16/23 10:00 Home Medications Medication Instructions Recorded Confirmed Type ferrous sulfate 325 mg (65 mg 325 mg BYMOUTH BIDWM #60 tabs 04/11/23 07/02/23 Rx iron) tablet,delayed release budesonide 3 mg See Rx Instructions .Route 05/14/23 07/16/23 Rx capsule,delayed,extended release .COMPLEX #90 caps Patient hx anesthesia problems: none Family hx anesthesia problems: none Results Review: All pre-operative results and documents have been reviewed as part of the pre- operative evaluation. [facility] Past Medical History Medical History Allergies Anxiety Chronic anemia Crohn's disease Depression Lower abdominal pain Surgical History Surgical History History of wisdom tooth extraction Family History Family History Sibling Family history of thyroid disease Mother Family history of gastrointestinal disorder Father Family history of elevated blood lipids Social History Social History Social History: Surrogate medical decision maker: Jennifer or Emmett Fay, parents. Code status: Full code. Smoking status: Never smoker Alcohol intake: current Alcohol use details: social Substance use: never Substance use type: does not use Lack of Transportation: No Lack of Food: Never True Current Housing: I Have Housing Concerned About Future Housing: No Difficulty Paying Gas/Electric Bills: No Difficulty Paying for Meds: No Currently Unemployed: No Education: Bachelor's Degree Difficulty w/ Childcare or Family Care: No Living arrangements: with family Spiritual care concerns: No Anes - Eval Final PreProcedure Day of Procedure 07/16/23 10:31 Patient weight: normal Heart: regular rate and rhythm Lungs: clear to auscultation Neurological: alert and oriented Last oral intake: >/= 8 hours ASA classification: II Emergent: no Anesthetic plan: proceed Anesthesia type and monitoring: general GIVS and standard monitoring Results Review: All pre-operative results and documents have been reviewed as part of the pre- operative evaluation. Informed Consent: The patient's anesthetic plan and its attendant risks and benefits were discussed with the patient/family/POA. Questions were solicited and answers provided to the satisfaction of the patient/family/POA.
[2023-07-16 11:09] VITALS: BP 83/48; PULSE 75; RESP 22; O2SAT 100
[2023-07-16 11:19] VITALS: BP 87/53; PULSE 68; RESP 18; O2SAT 100
[2023-07-16 11:29] VITALS: BP 96/66; PULSE 66; RESP 18; O2SAT 100
== END 2023-07-16 11:42 | disposition home or self-care (01) ==
PROVIDERS: PCP Physician Assistant; Visit Provider Internal Medicine Gastroenterology
PROC: 0DJD8ZZ Inspection of Lower Intestinal Tract, Via Natural or Artificial Opening Endoscopic (ICD-10-PCS; CPT 45378; principal; 2023-07-16 11:00)
DX: K50.80 Crohn's disease of both small and large intestine without complications (principal); K63.5 Polyp of colon; F41.9 Anxiety disorder, unspecified; D64.9 Anemia, unspecified; F32.A Depression, unspecified; Z98.0 Intestinal bypass and anastomosis status; Z90.49 Acquired absence of other specified parts of digestive tract
CPT/HCPCS: 45380; 88305; J2704; J7120

== ENCOUNTER 2024-07-30 17:07 | Emergency (ER) | payer BC, SELFPAY ==
[2024-07-30 17:14] VITALS: BP 107/69; PULSE 121; RESP 16; TEMP 36.6; O2SAT 99
[2024-07-30 17:15] VITALS: BP 107/69; PULSE 121; RESP 16; TEMP 36.6; O2SAT 99
--- NOTE | 2024-07-30 18:15 | ED_ITS ---
HPI - URI/Sore Throat General Chief Complaint: Upper Respiratory Infection Stated Complaint: Sinus Problems, Sore Throat, Chills, Bodyache Time Seen by Provider: 07/30/24 18:15 Source: patient, RN notes reviewed and old records reviewed Mode of arrival: ambulatory Limitations: no limitations History of Present Illness HPI Narrative: Patient presents with complaints of fever, body aches, sore throat, cough, runny nose. She reports symptoms have been present since late last night. She has not been taking any medication for her symptoms. She is able to manage on secretions, no drooling or stridor noted. She does not appear to be in any distress. She voices no other concerns or complaints at this time. Related Data Home Medications Medication Instructions Recorded Confirmed escitalopram oxalate 10 mg tablet 10 mg PO DAILY 07/22/23 07/30/24 duloxetine 30 mg capsule,delayed 30 mg PO DAILY 07/30/24 07/30/24 release ergocalciferol (vitamin D2) 1,250 See Rx Instructions .Route .COMPLEX 07/30/24 07/30/24 mcg (50,000 unit) capsule hydroxyzine pamoate 25 mg capsule 25 mg PO DAILY 07/30/24 07/30/24 Allergies Allergy/AdvReac Type Severity Reaction Status Date / Time No Known Allergies Allergy Verified 07/30/24 17:15 Review of Systems Review of Systems: All systems reviewed & are unremarkable except as noted in HPI and below Constitutional: Constitutional: Reports as per HPI, Reports no additional constitutional complaints, Reports fever(s) and Reports lethargy ENT: Reports system reviewed and no additional complaints, except as documented, Reports nasal discharge and Reports sore throat Cardiovascular: Cardiovascular: Reports no additional cardiovascular complaints Respiratory: Respiratory: Reports no additional respiratory complaints and Reports cough Gastrointestinal: Gastrointestinal: Reports no additional gastrointestinal complaints [facility] Past Medical History Medical History Allergies Anxiety Chronic anemia Crohn's disease Depression Lower abdominal pain Surgical History Surgical History History of wisdom tooth extraction Family History Family History Sibling Family history of thyroid disease Mother Family history of gastrointestinal disorder Father Family history of elevated blood lipids Social History Social History Social History: Surrogate medical decision maker: Jennifer or Emmett Fay, parents. Code status: Full code. Smoking status: Never smoker Alcohol intake: current Alcohol use details: social Substance use: never Substance use type: does not use Lack of Transportation: No Lack of Food: Never True Current Housing: I Have Housing Concerned About Future Housing: No Difficulty Paying Gas/Electric Bills: No Difficulty Paying for Meds: No Currently Unemployed: No Education: Bachelor's Degree Difficulty w/ Childcare or Family Care: No Living arrangements: with family Spiritual care concerns: No Comments At the time of my signature, I reviewed and agree with the nursing past medical, surgical, social, and family history. There is no relevant family history pertinent to the patient complaint. Exam Const: General: cooperative, no acute distress, alert and awake Orientation/consciousness: oriented to person, oriented to place and oriented to time HENMT: Head: normal to inspection Resp: Effort & Inspection: normal respiratory effort and able to speak in complete sentences Auscultation: clear to auscultation bilaterally, no crackles, no rales, no rhonchi and no wheezes Cardio: Palpation: normal PMI Rate: regular rate Rhythm: regular rhythm Heart sounds: S1 normal heart sound present and S2 normal heart sound present Neuro: General: oriented to person, oriented to place and oriented to time Cranial nerves: Yes CN's II-XII intact bilaterally Psych: Appearance: grossly normal Thought process: Normal thought process present Insight: Good insight present (Psych) Judgement: Good judgement present (Psych) Course Course Level of Care: Express Care Visit Vital Signs Vital signs: Vital Signs Temperature 97.9 F 07/30/24 17:14 Pulse Rate 121 H 07/30/24 17:14 Respiratory Rate 16 07/30/24 17:14 Blood Pressure 107/69 07/30/24 17:14 Pulse Oximetry 99 07/30/24 17:14 Oxygen Delivery Room Air 07/30/24 17:14 Temperature 97.9 F 07/30/24 17:15 Pulse Rate 121 H 07/30/24 17:15 Respiratory Rate 16 07/30/24 17:15 Blood Pressure 107/69 07/30/24 17:15 Pulse Oximetry 99 07/30/24 17:15 Oxygen Delivery Room Air 07/30/24 17:15 Reviewed MDM - URI/Sore Throat MDM Narrative Medical decision making narrative: Negative flu, negative COVID, negative strep. Culture pending. Reassuring physical exam. Patient advised of supportive care measures. Discharge instructions reviewed with patient, as well as provided in writing per nursing staff. The instructions also include specific and strict return/GO TO THE ER as well as f/u information. All questions have been answered, and the patient deny any further questions with discharge and discharge plan. Some parts of this dictation were generated by voice recognition software and m ay contain typographical and/or grammatical inaccuracies. Differential Diagnosis Differential diagnosis: Likely upper respiratory infection, otitis media, influenza and pharyngitis Medical Records Attestation: I reviewed the patient's medical records. Lab Data Attestation: I reviewed the patient's lab results. Discharge Plan Discharge Clinical Impression: URI (upper respiratory infection) Qualifiers: URI type: unspecified viral URI Qualified Code(s): J06.9 - Acute upper respiratory infection, unspecified Patient Disposition: Home, Self-Care Condition: Stable Instructions: Antibiotic Form, Cold Symptoms (ED) Additional Instructions: Use [id number] medications per package instructions to treat your symptoms as needed. Follow-up with primary care provider. Emergency department for new or worse symptoms Patient Language: French Prescriptions: No Action ergocalciferol (vitamin D2) 1,250 mcg (50,000 unit) capsule See Rx Instructions .ROUTE .COMPLEX Rx Instructions: Rx hydroxyzine pamoate 25 mg capsule 25 mg PO DAILY duloxetine 30 mg capsule,delayed release(DR/EC) 30 mg PO DAILY escitalopram oxalate 10 mg tablet 10 mg PO DAILY ferrous sulfate 325 mg (65 mg iron) Tablet,Delayed Release (Dr/Ec) 325 mg BYMOUTH BIDWM Qty: 60 0RF budesonide 3 mg capsule,delayed,extend.release See Rx Instructions .ROUTE .COMPLEX Qty: 90 5RF Dose Instruction: TAKE 3 CAPSULES BY MOUTH DAILY Rx Instructions: TAKE 3 CAPSULES BY MOUTH DAILY Follow-up/Referrals: Ingrid,KENZIE Jansen [Primary Care Provider] - 1 Week Stand Alone Forms: Work/School Release IP Time of Disposition: 18:43
[2024-07-30 18:45] LABS: EDCOVIDSCREEN Negative (Negative); EDINFLUASCREEN Negative (Negative); EDINFLUBSCREEN Negative (Negative)
[2024-07-30 18:45] LABS: EDSTREPNEGPOS1 Negative (Negative)
== END 2024-07-30 18:49 | disposition home or self-care (01) ==
PROVIDERS: Emergency Provider Nurse Practitioner Family; PCP Physician Assistant
DX: J06.9 Acute upper respiratory infection, unspecified (principal); Z20.822 Contact with and (suspected) exposure to COVID-19; K50.90 Crohn's disease, unspecified, without complications; F41.9 Anxiety disorder, unspecified; F32.A Depression, unspecified; D64.9 Anemia, unspecified
CPT/HCPCS: 87081; 87426; 87804; 87880; 99213; G0463

== ENCOUNTER 2024-12-03 09:03 | Emergency (ER) | payer BC, SELFPAY ==
[2024-12-03 09:11] VITALS: BP 102/76; PULSE 93; RESP 16; TEMP 36.4; O2SAT 100
--- NOTE | 2024-12-03 09:34 | ED_ITS ---
HPI - URI/Sore Throat General Chief Complaint: Upper Respiratory Infection Stated Complaint: cough,chest tight Source: patient and RN notes reviewed Mode of arrival: ambulatory Limitations: no limitations History of Present Illness HPI Narrative: 39-year-old female presents to the [facility] complain of upper respiratory symptoms for 2 days. She reports having a sore throat, congestion, voice hoarseness, cough, and chest tightness. She says her chest tightness is in the middle of her chest that is worse with breathing and is reproducible upon palpation. She denies any left arm pain, jaw pain, nausea, dyspnea. She denies any fever, chills, body aches, nausea, vomiting, diarrhea. She has been taking Tylenol for pain. She has no cardiac history, significant past medical history includes Crohn's disease. She is currently not on immunosuppressants for treatment for Crohn's. Related Data Home Medications ?Medication ?Instructions ?Recorded ?Confirmed ?Last Taken ?Type ergocalciferol (vitamin D2) 1,250 See Rx Instructions .Route .COMPLEX 07/30/24 12/03/24 Unknown History mcg (50,000 unit) capsule alprazolam 0.25 mg tablet 0.25 mg PO DAILY 12/03/24 12/03/24 Unknown History duloxetine 60 mg capsule,delayed 60 mg PO DAILY 12/03/24 12/03/24 Unknown History release Allergies Allergy/AdvReac Type Severity Reaction Status Date / Time ustekinumab (From Stelara) Allergy Hives Verified 12/03/24 09:11 Review of Systems Review of Systems: CONSTITUTIONAL: Denies fever, chills, or sweats. EYES: Denies visual changes, redness, or discharge. ENT: Denies rhinorrhea or otalgia. Positive for sore throat, congestion, voice hoarseness. CARDIOVASCULAR: Positive for chest tightness, negative for angina, jaw pain, left arm pain, palpitations, or edema. RESPIRATORY: Positive for cough and pain with inspiration. Negative for dyspnea. GASTROINTESTINAL: Denies abdominal pain, nausea, vomiting, or diarrhea. GENITOURINARY: Denies dysuria or hematuria. SKIN: Denies rash or itching. MUSCULOSKELETAL: Denies back pain, joint pain, or myalgia. NEUROLOGIC: Denies headache, numbness, or weakness. PSYCHIATRIC: Denies anxiety or depression. All other systems reviewed are negative, except as documented in HPI. [facility] Past Medical History Medical History Lower abdominal pain Chronic anemia Crohn's disease Depression Anxiety Allergies Surgical History Surgical History History of wisdom tooth extraction Family History Family History Sibling Family history of thyroid disease Mother Family history of gastrointestinal disorder Father Family history of elevated blood lipids Social History Social History Social History: Surrogate medical decision maker: Jennifer or Emmett Fay, parents. Code status: Full code. Smoking status: Never smoker Alcohol intake: current Alcohol use details: social Substance use: never Substance use type: does not use Lack of Transportation: No Lack of Food: Never True Current Housing: I Have Housing Concerned About Future Housing: No Difficulty Paying Gas/Electric Bills: No Difficulty Paying for Meds: No Currently Unemployed: No Education: Bachelor's Degree Difficulty w/ Childcare or Family Care: No Living arrangements: with family Spiritual care concerns: No Comments At the time of my signature, I reviewed and agree with the nursing past medical, surgical, social, and family history. There is no relevant family history pertinent to the patient complaint. Exam Narrative: GENERAL: This is a well-nourished, well-developed adult, in no apparent distress. They are non ill-appearing, nontoxic appearing. HEAD: normocephalic, atraumatic. EYES: Sclera clear/white. Vision is grossly intact. EARS: External ears normal, auditory canals clear and without drainage, TMs normal without perforation. Hearing grossly intact. NOSE: External nose normal with no obvious nasal discharge, nasal turbinates with redness, no rhinorrhea. THROAT: Mucous membranes moist, posterior pharynx with mild erythema. Uvula midline. Postnasal drip present. Voice hoarseness is present. NECK: Neck supple, non-tender without lymphadenopathy, masses or thyromegaly. CARDIOVASCULAR: Regular rate and rhythm without murmurs, gallops, or rubs. CHEST WALL: Normal chest wall movement. Reproducible chest wall pain that is tender to palpation in the upper chest and sternal area. RESPIRATORY: Clear to auscultation. Breath sounds equal bilaterally. No wheezes, rales, or rhonchi. SKIN: warm, Dry, intact with no suspicious lesions or rash, good texture and turgor. NEURO: awake, alert, and oriented to person, place and time. There were no obvious focal neurologic abnormalities. EXTREMITIES: No joint tenderness, effusion, or edema noted. BACK: Nontender without deformity. No CVA tenderness. Course Course Emergency Course: Patient is aware of diagnosis, understands and agrees to treatment plan. Anticipatory guidance given. Patient agrees to follow-up as directed and is aware of reasons to seek care at the emergency department. Portions of this record may have been created with voice recognition software Level of Care: Express Care Visit Vital Signs Vital signs: Vital Signs Temperature 97.6 F 12/03/24 09:11 Pulse Rate 93 12/03/24 09:11 Respiratory Rate 16 12/03/24 09:11 Blood Pressure 102/76 12/03/24 09:11 Pulse Oximetry 100 12/03/24 09:11 Oxygen Delivery Room Air 12/03/24 09:11 Temperature 97.6 F 12/03/24 09:11 Pulse Rate 93 12/03/24 09:11 Respiratory Rate 16 12/03/24 09:11 Blood Pressure 102/76 12/03/24 09:11 Pulse Oximetry 100 12/03/24 09:11 Oxygen Delivery Room Air 12/03/24 09:11 Reviewed MDM - URI/Sore Throat MDM Narrative Medical decision making narrative: Symptoms are likely viral in etiology. She did report chest tightness however the pain is reproducible to palpation to her chest wall and the pain is worse with inspiration. She has no other associated cardiac symptoms. She has no significant past medical history other than Crohn's. Patient was offered viral testing and she declined. Discussed physical exam findings. Advised supportive measures and signs/symptoms to go to the ER. Pt is appropriate for outpt treatment and f/u. Differential Diagnosis Differential diagnosis: Likely upper respiratory infection, viral infection and bronchitis Critical Care Time Critical Care Time Critical Care Time: No Discharge Plan Discharge Clinical Impression: Upper respiratory infection Qualifiers: URI type: unspecified viral URI Qualified Code(s): J06.9 - Acute upper respiratory infection, unspecified Patient Disposition: Home, Self-Care Condition: Stable Instructions: Upper Respiratory Infection (ED) Additional Instructions: You likely have a viral illness, symptoms usually resolve on their own in 7-14 days. Antibiotics will not work on a viral illness. Use Tessalon Perles as needed for cough. Other symptomatic treatments include: -Alternate Tylenol and Motrin per package directions for fever or pain: Tylenol 650-1000mg by mouth every 4-6 hours. Do not exceed 4000mg in 24 hours. Advil (Ibuprofen) 600 mg by mouth every 6 hours. Do not exceed 2400mg in 24 hours. 8 AM: Tylenol 11 AM: Ibuprofen 2 PM: Tylenol 5 PM: Ibuprofen 8 PM: Tylenol 11 PM: Ibuprofen 2 AM: Tylenol 5 AM: Ibuprofen -Antihistamine medication such as Benadryl at night and Zyrtec/Claritin/Leny during the day can help improve symptoms. -Use Flonase twice a day for 5 days then daily to help reduce the inflammation and dry up your sinuses. -You can also use Sudafed or Mucinex. Be sure to drink plenty of water with these medications at least 8 ounces with every dose and it is important to drink 8 to 10 glasses of water per day. Water is a natural decongestant -Eat and drink things that are easy to swallow, like tea or soup, or popsicles. -Oral rinses such as: Salt water gargles and/or may use topical anesthetic (eg. Chloraseptic spray) or lozenges to relieve dryness or throat pain). -Frequent hand washing or hand administration intern is one of the best ways to prevent spread of infection. -Using a vaporizer or humidifier at night will also help thin secretions and help with coughing up phlegm. Call your Primary Care Doctor and make a follow-up appointment in 3 days. If your cough worsens, you develop a fever greater than 103, you develop shaking chills, a fast heartbeat, trouble breathing and/or feel you are are breathing much faster than usual, call your Primary Care Doctor or go to the ER. Patient Language: Malawian Prescriptions: New fluticasone propionate [Flonase Allergy Relief] 50 mcg/actuation spray,suspension 2 spray intranasal DAILY Qty: 16 0RF Rx Instructions: administer into each nostril benzonatate 100 mg capsule 100 mg PO TID PRN (Reason: cough) Qty: 20 0RF No Action ergocalciferol (vitamin D2) 1,250 mcg (50,000 unit) capsule See Rx Instructions .ROUTE .COMPLEX Rx Instructions: Rx duloxetine 60 mg capsule,delayed release(DR/EC) 60 mg PO DAILY alprazolam 0.25 mg tablet 0.25 mg PO DAILY ferrous sulfate 325 mg (65 mg iron) Tablet,Delayed Release (Dr/Ec) 325 mg BYMOUTH BIDWM Qty: 60 0RF Follow-up/Referrals: Ingrid,KENZIE Jansen [Primary Care Provider] - Time of Disposition: 09:36
== END 2024-12-03 09:15 | disposition home or self-care (01) ==
PROVIDERS: PCP Physician Assistant
DX: J06.9 Acute upper respiratory infection, unspecified (principal); K50.90 Crohn's disease, unspecified, without complications; F41.9 Anxiety disorder, unspecified; D64.9 Anemia, unspecified
CPT/HCPCS: 99213; G0463